=== PATIENT | male | born 1975 | race Caucasian/White ===

== ENCOUNTER 2017-02-15 10:52 | Inpatient (IN) | payer OTHER ==
[2017-02-15 11:30] VITALS: BMI 19.5
--- NOTE | 2017-02-15 15:21 | HP ---
COWS - Scale Resting Pulse: 1= MS 81-100 Sweatin=Flushed/Facial Moisture Restless Observation: 3= Extraneous Movement Pupil Size: 2= Moderately Dilated Bone or Joint Aches: 2= Severe Diffuse Aches Runny Nose/ Eye Tearin= Runny Nose/Eyes GI Upset > 30mins: 3= Vomiting/Diarrhea Tremor Observation: 2= Slight Tremor Visible Yawning Observation: 2= >3x During Session Anxiety or Irritability: 2=Irritable/Anxious Goose Flesh Skin: 0=Smooth Skin COWS Score: 21 Admission ROS BHS - HPI Chief Complaint: i need help to stop using heroin,cocaine and cannabis Allergies/Adverse Reactions: Allergies Allergy/AdvReac Type Severity Reaction Status Date / Time No Known Allergies Allergy Verified 02/15/17 14:56 History of Present Illness: this 41 years old black male with heroin,cocaine,cannabis dependence,withdrawal symptom,seeking detox,last detox 2013 [facility] weight loss longest period of sobriety 18 months Exam Limitations: No Limitations - Ebola screening Have you traveled outside of the country in the last 21 days: No Have you had contact with anyone from an Ebola affected area: No Have you been sick,other than usual withdrawal symptoms: No Do you have a fever: No - Review of Systems Constitutional: Chills, Diaphoresis, Loss of Appetite, Malaise, Night Sweats, Changes in sleep, Weakness, Unintentional Wgt. Loss EENT: reports: Tearing, Nose Congestion Respiratory: reports: No Symptoms reported Cardiac: reports: Palpitations GI: reports: Diarrhea, Nausea, Vomiting, Abdominal cramping : reports: No Symptoms Reported Musculoskeletal: reports: Back Pain, Muscle Pain Integumentary: reports: Dryness Neuro: reports: Headache, Tremors Endocrine: reports: No Symptoms Reported Hematology: reports: No Symptoms Reported Psychiatric: reports: No Sypmtoms Reported, Judgement Intact, Mood/Affect Appropiate, Orientated x3 Patient History - Patient Medical History Hx Anemia: No Hx Asthma: No Hx Chronic Obstructive Pulmonary Disease (COPD): No Hx Cancer: No Hx Cardiac Disorders: No Hx Congestive Heart Failure: No Hx Hypertension: No Hx Hypercholesterolemia: No Hx Pacemaker: No HX Cerebrovascular Accident: No Hx Seizures: No Hx Dementia: No Hx Diabetes: No Hx Gastrointestinal Disorders: No Hx Liver Disease: No Hx Genitourinary Disorders: No Hx Sexually Transmitted Disorders: No Hx Renal Disease (ESRD): No Hx Thyroid Disease: No Hx Human Immunodeficiency Virus (HIV): No (last 01/19 negative) Hx Hepatitis C: No Hx Depression: No Hx Suicide Attempt: No Hx Bipolar Disorder: No Hx Schizophrenia: No Other Medical History: no suicidal,no homicidal - Patient Surgical History Past Surgical History: Yes Other Surgical History: Sx for chronic sinusitis in 1996. Anesthesia Reaction: No - PPD History Previous Implant?: Yes Documented Results: Negative w/o proof Implanted On Prior R Admission?: No PPD to be Administered?: Yes - Smoking Cessation Smoking history: Current every day smoker Have you smoked in the past 12 months: Yes Aproximately how many cigarettes per day: 20 Hx Chewing Tobacco Use: No Initiated information on smoking cessation: Yes 'Breaking Loose' booklet given: 02/15/17 - Substance & Tx. History Hx Alcohol Use: No Hx Substance Use: Yes Substance Use Type: Cocaine, Heroin, Marijuana Hx Substance Use Treatment: Yes ([facility] 01/19) - Substances Abused Heroin Route: Inhalation Frequency: Daily Amount used: 20 BAGS Age of first use: 29 Date of Last Use: 02/14/17 Cocaine Route: Inhalation Frequency: Daily Amount used: 1 GRAM Age of first use: 30 Date of Last Use: 02/14/17 Marijuana/Hashish Route: Smoking Frequency: Daily Amount used: 2 BLUNTS Age of first use: 16 Date of Last Use: 02/14/17 Family Disease History - Family Disease History Family History: Denies Admission Physical Exam S - Vital Signs Vital Signs: Vital Signs - 24 hr 02/15/17 11:28 Temperature 97.6 F Pulse Rate 95 H Respiratory 18 Rate Blood Pressure 121/78 - Physical General Appearance: Yes: Moderate Distress, Tremorous, Irritable, Sweating, Anxious HEENTM: Yes: Within Normal Limits, Normal ENT Inspection, EBENEZER, Pharynx Normal Respiratory: Yes: Lungs Clear, Normal Breath Sounds, No Respiratory Distress Neck: Yes: Within Normal Limits, Supple, Trachea in good position Breast: Yes: Within Normal Limits Cardiology: Yes: Within Normal Limits, Regular Rhythm, Regular Rate, S1, S2 Abdominal: Yes: Within Normal Limits, Normal Bowel Sounds, Flat, Soft Genitourinary: Yes: Within Normal Limits Back: Yes: Normal Inspection, Muscle Spasm Musculoskeletal: Yes: full range of Motion, Back pain, Muscle Pain Extremities: Yes: Within Normal Limits, Normal Range of Motion, Tremors 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 - Detox or Rehab [facility] Level of Care: Medically Managed Detox Regimen/Protocol: Methadone [facility] Breath Alcohol Content Breath Alcohol Content: 0 Urine Drug Screen - Results Drug Screen Negative: No Urine Drug Screen Results: THC-Marijuana, CASSY-Cocaine, OPI-Opiates, MTD- Methadone, OXY-Oxycodone
[2017-02-15] MEDS ORDERED: MENTHOL/PHENOL 1 EACH UD MM PRN (15:38)
[2017-02-15] MEDS ORDERED: guaiFENesin/D-METHORPHAN HB 10 ML UNIT-DOSE CUPS PO PRN (15:38)
[2017-02-15] MEDS ORDERED: MAG HYDROX/AL HYDROX/SIMETH 30 ML UNIT-DOSE CUP PO PRN (15:38)
[2017-02-15] MEDS ORDERED: P-EPHED 60MG/TRIPROLIDI 2.5MG TABLET PO PRN (15:38)
[2017-02-15] MEDS ORDERED: MAGNESIUM HYDROX 2400MG/30ML ORAL SUSPENSION 30 ML CUP PO PRN (15:38)
[2017-02-15] MEDS ORDERED: MAGNESIUM CITRATE 300 ML BOTTLE PO PRN (15:38)
[2017-02-15] MEDS ORDERED: LOPERAMIDE HCL 2 MG CAPSULE PO PRN (15:38)
[2017-02-15] MEDS ORDERED: ACETAMINOPHEN 325 MG TABLET (FP) PO PRN (15:38)
[2017-02-15] MEDS: diazePAM 5 MG TABLET PO PRN ×2 (16:44→22:42)
[2017-02-15] MEDS: NICOTINE 21 MG/24 HOURS TOPICAL PATCH TD SCH (16:45)
[2017-02-15] MEDS ORDERED: METHADONE HCL 10 MG TABLET (FOR DETOX USE ONLY) PO ONE ×2 (17:00→23:00)
[2017-02-15 22:28] LABS: URINE APPEARANCE CLEAR; URINE BLOOD NEGATIVE (NEGATIVE); URINE COLOR AMBER; URINE GLUCOSE (UA) NEGATIVE (NEGATIVE); URINE KETONE TRACE (NEGATIVE); URINE LEUK ESTERASE NEGATIVE (NEGATIVE); URINE NITRITE NEGATIVE (NEGATIVE); URINE UROBILINOGEN NEGATIVE E.U./dl (0.2-1.0)
[2017-02-15 22:33] LABS: URINE PROTEIN 2+ (NEGATIVE)
[2017-02-15 22:43] LABS: GRANULAR CASTS 4 /lpf; URINE HYALINE CAST 4 /lpf; URINE MUCUS FEW; URINE RBC 16 /hpf (0-3); URINE WBC 4 /hpf (3-5)
[2017-02-15] MEDS: THIAMINE HCL 100 MG TABLET (FP) PO SCH (22:43)
[2017-02-15] MEDS: diphenhydrAMINE HCL 50 MG CAPSULE PO PRN (22:45)
[2017-02-16] MEDS: diazePAM 5 MG TABLET PO PRN ×4 (05:33→23:03)
[2017-02-16] MEDS: IBUPROFEN 400 MG TABLET (FP) PO PRN ×2 (09:08→17:21)
[2017-02-16 09:59] LABS: MCH 26.8 pg (25.7-33.7); MCHC 32.6 g/dl (32.0-35.9); MEAN CELL VOLUME 82.1 fl (80-96); MEAN PLT VOLUME 8.6 fl (7.5-11.1); PLATELET COUNT 258 K/MM3 (134-434); RDW 16.2 % (11.9-15.9); WHITE BLOOD COUNT 5.4 K/mm3 (4.0-10.0)
[2017-02-16] MEDS ORDERED: METHADONE HCL 10 MG TABLET (FOR DETOX USE ONLY) PO ONE (10:00)
[2017-02-16] MEDS: NICOTINE 21 MG/24 HOURS TOPICAL PATCH TD SCH (10:30)
[2017-02-16] MEDS: PRENATAL VITAMINS W/ FOLIC ACID TABLET (FP) PO SCH (10:30)
[2017-02-16 10:33] LABS: ALBUMIN 4.5 g/dl (3.4-5.0); CALCIUM 9.4 mg/dL (8.5-10.1)
[2017-02-16 10:39] LABS: ALK PHOS 80 U/L (45-117); ANION GAP 8 (8-16); BILIRUBIN,TOTAL 0.5 mg/dL (0.2-1.0); CO2 29 mmol/L (21-32); COCKROFT - GAULT 69.08; CREATININE 1.3 mg/dL (0.7-1.3); GLUCOSE,RANDOM 140 mg/dL (74-106); SGOT/AST 15 U/L (15-37); SGPT/ALT 24 U/L (12-78); TOT PROT 7.9 g/dl (6.4-8.2)
--- NOTE | 2017-02-16 10:50 | PN ---
[facility] CIWA - CIWA Score Nausea/Vomitin Muscle Tremors: 3 Anxiety: 3 Agitation: 2 Paroxysmal Sweats: 1-Minimal Palms Moist Orientation: 0-Oriented Tacttile Disturbances: 1-Very Mild Itch/Numbness Auditory Disturbances: 1-Very Mild Visual Disturbances: 1-Very Mild Sensitivity Headache: 2-Mild CIWA-Ar Total Score: 17 BHS COWS - Scale Resting Pulse: 1= ME 81-100 Sweatin= Chills/Flushing Restless Observation: 3= Extraneous Movement Pupil Size: 1= Pupils >than Normal Bone or Joint Aches: 2= Severe Diffuse Aches Runny Nose/ Eye Tearin= Runny Nose/Eyes GI Upset > 30mins: 2= Nausea/Diarrhea Tremor Observation of Outstretched Hands: 2= Slight Tremor Visible Yawning Observation: 1= 1-2x During Session Anxiety or Irritability: 2=Irritable/Anxious Goose Flesh Skin: 0=Smooth Skin COWS Score: 17 [facility] Progress Note (SOAP) Subjective: alert,irritable,anxious,interrupted sleep,tremor,pain in the body and back Objective: 02/16/17 10:47 Vital Signs Temperature 96.8 F L 02/16/17 09:40 Pulse Rate 92 H 02/16/17 09:40 Respiratory Rate 18 02/16/17 09:40 Blood Pressure 130/68 02/16/17 09:40 O2 Sat by Pulse Oximetry (%) eklg nsr no chest pain,no sob,no dizziness Laboratory Last Values WBC 5.4 K/mm3 (4.0-10.0) 02/16/17 06:00 RBC 5.33 M/mm3 (4.00-5.60) 02/16/17 06:00 Hgb 14.3 GM/dL (11.7-16.9) 02/16/17 06:00 Hct 43.7 % (35.4-49) 02/16/17 06:00 MCV 82.1 fl (80-96) 02/16/17 06:00 MCHC 32.6 g/dl (32.0-35.9) 02/16/17 06:00 RDW 16.2 % (11.9-15.9) H 02/16/17 06:00 Plt Count 258 K/MM3 (134-434) 02/16/17 06:00 MPV 8.6 fl (7.5-11.1) 02/16/17 06:00 Urine Color Kim 02/15/17 20:30 Urine Appearance Clear 02/15/17 20:30 Urine pH 5.0 (5.0-8.0) 02/15/17 20:30 Urine Protein 2+ (NEGATIVE) H 02/15/17 20:30 Urine Glucose (UA) Negative (NEGATIVE) 02/15/17 20:30 Urine Ketones Trace (NEGATIVE) H 02/15/17 20:30 Urine Blood Negative (NEGATIVE) 02/15/17 20:30 Urine Nitrite Negative (NEGATIVE) 02/15/17 20:30 Urine Bilirubin 2.0 (NEGATIVE) 02/15/17 20:30 Urine Urobilinogen Negative E.U./dl (0.2-1.0) 02/15/17 20:30 Ur Leukocyte Esterase Negative (NEGATIVE) 02/15/17 20:30 Urine RBC 16 /hpf (0-3) 02/15/17 20:30 Urine WBC 4 /hpf (3-5) 02/15/17 20:30 Ur Epithelial Cells Rare /hpf (FEW) 02/15/17 20:30 Hyaline Casts 4 /lpf 02/15/17 20:30 Granular Casts 4 /lpf 02/15/17 20:30 Urine Mucus Few 02/15/17 20:30 Assessment: 02/16/17 10:49 withdrawal symptom Plan: continue detox,ua
[2017-02-16 11:43] LABS: SICKLE CELL SCREEN NEGATIVE (NEGATIVE)
--- NOTE | 2017-02-16 12:49 | EKG ---
Test Reason : Blood Pressure : / mmHG Vent. Rate : 070 BPM Atrial Rate : 070 BPM P-R Int : 150 ms QRS Dur : 084 ms QT Int : 394 ms P-R-T Axes : 070 072 065 degrees QTc Int : 425 ms NORMAL SINUS RHYTHM MINIMAL VOLTAGE CRITERIA FOR LVH, MAY BE NORMAL VARIANT BORDERLINE ECG NO PREVIOUS ECGS AVAILABLE Confirmed by GARIMA FLOYD MD ([id number]) on 02/16/2017 12:48:42 PM Referred By: Confirmed By:GARIMA FLOYD MD
[2017-02-16] MEDS: LIDOCAINE VISCOUS 2% ORAL/TOP 20 ML UNIT-DOSE CUP MM PRN (18:08)
[2017-02-16] MEDS: THIAMINE HCL 100 MG TABLET (FP) PO SCH (22:57)
[2017-02-17] MEDS: LIDOCAINE VISCOUS 2% ORAL/TOP 20 ML UNIT-DOSE CUP MM PRN ×4 (02:07→21:00)
[2017-02-17] MEDS: IBUPROFEN 400 MG TABLET (FP) PO PRN (09:16)
[2017-02-17] MEDS: diazePAM 5 MG TABLET PO PRN ×2 (09:22→20:12)
[2017-02-17] MEDS ORDERED: METHADONE HCL 5 MG TABLET (FOR DETOX USE ONLY) PO ONE (10:00)
[2017-02-17] MEDS: NICOTINE 21 MG/24 HOURS TOPICAL PATCH TD SCH (10:15)
[2017-02-17] MEDS: PRENATAL VITAMINS W/ FOLIC ACID TABLET (FP) PO SCH (10:15)
[2017-02-17] MEDS: hydrOXYzine PAMOATE 50 MG CAPSULE (FP) PO PRN (10:18)
[2017-02-17] MEDS: NICOTINE POLACRILEX 2 MG GUM BC PRN (10:19)
--- NOTE | 2017-02-17 11:57 | PN ---
S CIWA - CIWA Score Nausea/Vomitin Muscle Tremors: 3 Anxiety: 2 Agitation: 2 Paroxysmal Sweats: 1-Minimal Palms Moist Orientation: 0-Oriented Tacttile Disturbances: 1-Very Mild Itch/Numbness Auditory Disturbances: 1-Very Mild Visual Disturbances: 1-Very Mild Sensitivity Headache: 2-Mild CIWA-Ar Total Score: 16 S Progress Note (SOAP) Subjective: ALERT,IRRITABLE,ANXIOUS,INTERRUPTED SLEEP,TREMOR Objective: 02/17/17 11:55 Vital Signs Temperature 98.4 F 02/17/17 09:45 Pulse Rate 97 H 02/17/17 09:45 Respiratory Rate 16 02/17/17 09:45 Blood Pressure 148/80 02/17/17 09:45 O2 Sat by Pulse Oximetry (%) Vital Signs Temperature 98.4 F 02/17/17 09:45 Pulse Rate 97 H 02/17/17 09:45 Respiratory Rate 16 02/17/17 09:45 Blood Pressure 148/80 02/17/17 09:45 O2 Sat by Pulse Oximetry (%) Laboratory Last Values WBC 5.4 K/mm3 (4.0-10.0) 02/16/17 06:00 RBC 5.33 M/mm3 (4.00-5.60) 02/16/17 06:00 Hgb 14.3 GM/dL (11.7-16.9) 02/16/17 06:00 Hct 43.7 % (35.4-49) 02/16/17 06:00 MCV 82.1 fl (80-96) 02/16/17 06:00 MCHC 32.6 g/dl (32.0-35.9) 02/16/17 06:00 RDW 16.2 % (11.9-15.9) H 02/16/17 06:00 Plt Count 258 K/MM3 (134-434) 02/16/17 06:00 MPV 8.6 fl (7.5-11.1) 02/16/17 06:00 Sickle Cell Screen Negative (NEGATIVE) 02/16/17 06:00 Sodium 137 mmol/L (136-145) 02/16/17 06:00 Potassium 4.4 mmol/L (3.5-5.1) 02/16/17 06:00 Chloride 100 mmol/L (98-107) 02/16/17 06:00 Carbon Dioxide 29 mmol/L (21-32) 02/16/17 06:00 Anion Gap 8 (8-16) 02/16/17 06:00 BUN 22 mg/dL (7-18) H 02/16/17 06:00 Creatinine 1.3 mg/dL (0.7-1.3) 02/16/17 06:00 Creat Clearance w eGFR > 60 (>60) 02/16/17 06:00 Random Glucose 140 mg/dL (74-106) H 02/16/17 06:00 Calcium 9.4 mg/dL (8.5-10.1) 02/16/17 06:00 Total Bilirubin 0.5 mg/dL (0.2-1.0) 02/16/17 06:00 AST 15 U/L (15-37) 02/16/17 06:00 ALT 24 U/L (12-78) 02/16/17 06:00 Alkaline Phosphatase 80 U/L (45-117) 02/16/17 06:00 Total Protein 7.9 g/dl (6.4-8.2) 02/16/17 06:00 Albumin 4.5 g/dl (3.4-5.0) 02/16/17 06:00 Urine Color Kim 02/15/17 20:30 Urine Appearance Clear 02/15/17 20:30 Urine pH 5.0 (5.0-8.0) 02/15/17 20:30 Ur Specific [place] >= 1.030 (1.005-1.025) H 02/15/17 20:30 Urine Protein 2+ (NEGATIVE) H 02/15/17 20:30 Urine Glucose (UA) Negative (NEGATIVE) 02/15/17 20:30 Urine Ketones Trace (NEGATIVE) H 02/15/17 20:30 Urine Blood Negative (NEGATIVE) 02/15/17 20:30 Urine Nitrite Negative (NEGATIVE) 02/15/17 20:30 Urine Bilirubin 2.0 (NEGATIVE) 02/15/17 20:30 Urine Urobilinogen Negative E.U./dl (0.2-1.0) 02/15/17 20:30 Ur Leukocyte Esterase Negative (NEGATIVE) 02/15/17 20:30 Urine RBC 16 /hpf (0-3) 02/15/17 20:30 Urine WBC 4 /hpf (3-5) 02/15/17 20:30 Ur Epithelial Cells Rare /hpf (FEW) 02/15/17 20:30 Hyaline Casts 4 /lpf 02/15/17 20:30 Granular Casts 4 /lpf 02/15/17 20:30 Urine Mucus Few 02/15/17 20:30 RPR Titer Nonreactive (NONREACTIVE) 02/16/17 06:00 Assessment: 02/17/17 11:56 WITHDRAWAL SYMPTOM Plan: CONTINUE DETOX
[2017-02-17] MEDS: THIAMINE HCL 100 MG TABLET (FP) PO SCH (22:30)
[2017-02-17] MEDS: diphenhydrAMINE HCL 50 MG CAPSULE PO PRN (22:32)
[2017-02-18] MEDS: diazePAM 5 MG TABLET PO PRN ×3 (00:49→10:22)
[2017-02-18] MEDS ORDERED: METHADONE HCL 5 MG TABLET (FOR DETOX USE ONLY) PO ONE (10:00)
--- NOTE | 2017-02-18 10:16 | PN ---
S Progress Note (SOAP) Subjective: alert,irritable,anxious,interrupted sleep,pain in the right upper molar cavity Objective: 02/18/17 10:12 Vital Signs Temperature 97.7 F 02/18/17 07:16 Pulse Rate 84 02/18/17 07:16 Respiratory Rate 18 02/18/17 07:16 Blood Pressure 137/76 02/18/17 07:16 O2 Sat by Pulse Oximetry (%) Assessment: 02/18/17 10:13 withdrawal symptom infected dental cavity right upper molar Plan: continue detox,pen vee k 500 mgs po q6 hrs for 7 days,motrin 800 mgs po tid prn for pain,lidocaine viscous prn for toothache
[2017-02-18] MEDS: PRENATAL VITAMINS W/ FOLIC ACID TABLET (FP) PO SCH (10:18)
[2017-02-18] MEDS: NICOTINE 21 MG/24 HOURS TOPICAL PATCH TD SCH (10:20)
[2017-02-18] MEDS: IBUPROFEN 400 MG TABLET (FP) PO PRN ×2 (10:44→20:51)
[2017-02-18] MEDS: PENICILLIN V POTASSIUM 500 MG TABLET PO SCH ×2 (12:56→17:19)
[2017-02-18] MEDS: LIDOCAINE VISCOUS 2% ORAL/TOP 20 ML UNIT-DOSE CUP MM PRN (17:19)
[2017-02-18] MEDS: hydrOXYzine PAMOATE 50 MG CAPSULE (FP) PO PRN (17:20)
[2017-02-18] MEDS: THIAMINE HCL 100 MG TABLET (FP) PO SCH (22:55)
[2017-02-19] MEDS: PENICILLIN V POTASSIUM 500 MG TABLET PO SCH ×2 (00:06→05:41)
[2017-02-19] MEDS: NICOTINE POLACRILEX 2 MG GUM BC PRN (05:44)
[2017-02-19] MEDS: IBUPROFEN 400 MG TABLET (FP) PO PRN (06:23)
[2017-02-19] MEDS: hydrOXYzine PAMOATE 50 MG CAPSULE (FP) PO PRN (06:27)
[2017-02-19] MEDS: LIDOCAINE VISCOUS 2% ORAL/TOP 20 ML UNIT-DOSE CUP MM PRN (07:20)
[2017-02-19] MEDS ORDERED: METHADONE HCL 10 MG TABLET (FOR DETOX USE ONLY) PO ONE (10:00)
[2017-02-19 10:24] VITALS: BP 146/89; PULSE 104; TEMP 97.9
--- NOTE | 2017-02-19 10:25 | DS ---
[facility] Detox Discharge Summary Admission Date: 02/15/17 Discharge Date: 02/19/17 - History Present History: Cannabis Dependence, Cocaine Dependence, Opioid Dependence Pertinent Past History: Insomnia - Physical Exam Results Vital Signs: Vital Signs Temperature 97.2 F L 02/19/17 06:16 Pulse Rate 78 02/19/17 06:16 Respiratory Rate 18 02/19/17 06:16 Blood Pressure 152/88 02/19/17 06:16 O2 Sat by Pulse Oximetry (%) Pertinent Admission Physical Exam Findings: Withdrawal sx. Laboratory Last Values WBC 5.4 K/mm3 (4.0-10.0) 02/16/17 06:00 RBC 5.33 M/mm3 (4.00-5.60) 02/16/17 06:00 Hgb 14.3 GM/dL (11.7-16.9) 02/16/17 06:00 Hct 43.7 % (35.4-49) 02/16/17 06:00 MCV 82.1 fl (80-96) 02/16/17 06:00 MCHC 32.6 g/dl (32.0-35.9) 02/16/17 06:00 RDW 16.2 % (11.9-15.9) H 02/16/17 06:00 Plt Count 258 K/MM3 (134-434) 02/16/17 06:00 MPV 8.6 fl (7.5-11.1) 02/16/17 06:00 Sickle Cell Screen Negative (NEGATIVE) 02/16/17 06:00 Sodium 137 mmol/L (136-145) 02/16/17 06:00 Potassium 4.4 mmol/L (3.5-5.1) 02/16/17 06:00 Chloride 100 mmol/L (98-107) 02/16/17 06:00 Carbon Dioxide 29 mmol/L (21-32) 02/16/17 06:00 Anion Gap 8 (8-16) 02/16/17 06:00 BUN 22 mg/dL (7-18) H 02/16/17 06:00 Creatinine 1.3 mg/dL (0.7-1.3) 02/16/17 06:00 Creat Clearance w eGFR > 60 (>60) 02/16/17 06:00 Random Glucose 140 mg/dL (74-106) H 02/16/17 06:00 Calcium 9.4 mg/dL (8.5-10.1) 02/16/17 06:00 Total Bilirubin 0.5 mg/dL (0.2-1.0) 02/16/17 06:00 AST 15 U/L (15-37) 02/16/17 06:00 ALT 24 U/L (12-78) 02/16/17 06:00 Alkaline Phosphatase 80 U/L (45-117) 02/16/17 06:00 Total Protein 7.9 g/dl (6.4-8.2) 02/16/17 06:00 Albumin 4.5 g/dl (3.4-5.0) 02/16/17 06:00 Urine Color Kim 02/15/17 20:30 Urine Appearance Clear 02/15/17 20:30 Urine pH 5.0 (5.0-8.0) 02/15/17 20:30 Ur Specific [place] >= 1.030 (1.005-1.025) H 02/15/17 20:30 Urine Protein 2+ (NEGATIVE) H 02/15/17 20:30 Urine Glucose (UA) Negative (NEGATIVE) 02/15/17 20:30 Urine Ketones Trace (NEGATIVE) H 02/15/17 20:30 Urine Blood Negative (NEGATIVE) 02/15/17 20:30 Urine Nitrite Negative (NEGATIVE) 02/15/17 20:30 Urine Bilirubin 2.0 (NEGATIVE) 02/15/17 20:30 Urine Urobilinogen Negative E.U./dl (0.2-1.0) 02/15/17 20:30 Ur Leukocyte Esterase Negative (NEGATIVE) 02/15/17 20:30 Urine RBC 16 /hpf (0-3) 02/15/17 20:30 Urine WBC 4 /hpf (3-5) 02/15/17 20:30 Ur Epithelial Cells Rare /hpf (FEW) 02/15/17 20:30 Hyaline Casts 4 /lpf 02/15/17 20:30 Granular Casts 4 /lpf 02/15/17 20:30 Urine Mucus Few 02/15/17 20:30 RPR Titer Nonreactive (NONREACTIVE) 02/16/17 06:00 labs noted - Treatment Patient has Accepted a Rehab Referral to: MADISYN at [facility] out-pt. - Medication Discharge Medications: Ambulatory Orders NK [No Known Home Medication] 02/15/17 - Diagnosis (1) Cannabis dependence Current Visit: Yes Status: Acute (2) Cocaine dependence Current Visit: Yes Status: Acute Qualifiers: Substance use status: uncomplicated Qualified Code(s): F14.20 - Cocaine dependence, uncomplicated (3) Insomnia Current Visit: Yes Status: Chronic (4) Opioid dependence with withdrawal Current Visit: Yes Status: Acute (5) Weight loss Current Visit: Yes Status: Acute - AMA Did Patient Leave Against Medical Advice: Yes
[2017-02-20] MEDS ORDERED: METHADONE HCL 5 MG TABLET (FOR DETOX USE ONLY) PO ONE (06:00)
== END 2017-02-19 09:38 | disposition home or self-care (01) | DRG 773 ==
LOC: YASAS 10:52 → Y6N 15:59
PROVIDERS: ADMIT Internal Medicine; ATTEND Internal Medicine
PROC: HZ2ZZZZ Detoxification Services for Substance Abuse Treatment (ICD-10-PCS; principal; 2017-02-15)
DX: F11.23 Opioid dependence with withdrawal (principal); F14.20 Cocaine dependence, uncomplicated; F12.20 Cannabis dependence, uncomplicated; F17.210 Nicotine dependence, cigarettes, uncomplicated; G47.00 Insomnia, unspecified; K02.9 Dental caries, unspecified; Z87.898 Personal history of other specified conditions
CPT/HCPCS: 36415; 80053; 81003; 81015; 85027; 85660; 86593; 93005; 93010